=== PATIENT | male | born 1970 | race Two or more races ===

== ENCOUNTER 2025-01-19 23:21 | Emergency (ER) | payer SELFPAY ==
[2025-01-19 23:31] VITALS: BP 180/102; BP 180/98; PULSE 107; PULSE 115; RESP 16; TEMP 36.6; O2SAT 99; BMI 22.7
[2025-01-20 00:06] VITALS: BP 180/102; PULSE 107; RESP 16; TEMP 36.6; O2SAT 99
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
[2025-01-20 01:31] VITALS: BP 172/112; PULSE 100; RESP 16; TEMP 36.3; O2SAT 98
== END 2025-01-20 01:36 | disposition home or self-care (01) ==
PROVIDERS: Emergency Provider Emergency Medicine
DX: Z04.1 Encounter for examination and observation following transport accident (principal)
CPT/HCPCS: 99282; 99284